=== PATIENT | male | born 1960 | race Caucasian/White ===

== ENCOUNTER → 2025-01-01 06:49 | Outpatient (REF) | payer OTHER, SELFPAY | LOC: HWRAD 06:49 | PROVIDERS: ATTENDING PHYSICIAN Student in an Organized Health Care Education/Training Program | DX: K57.30 Diverticulosis of large intestine without perforation or abscess without bleeding (principal); K80.20 Calculus of gallbladder without cholecystitis without obstruction; K76.89 Other specified diseases of liver | CPT/HCPCS: 76700 ==